=== PATIENT | male | born 1995 | race Two or more races ===

== ENCOUNTER → 2020-02-08 | Outpatient (CLI) | payer BC ==
[2020-02-08 13:19] LABS: Urine WBC None Seen /hpf (0 - 3)
[2020-02-08 13:36] LABS: Urine Bacteria NONE SEEN /hpf (None Seen); Urine Blood 3+ /uL (Negative); Urine Hyaline Cast FEW /lpf (0 - 2); Urine Specific Gravity 1.016 (1.001-1.035)
[2020-02-08 13:45] LABS: Basophils # (auto) 0 10 ^3/uL (0-0.2); Basophils % (auto) 0.6 % (0.0-2.0); Eosinophils # (auto) 0.1 10 ^3/uL (0-0.8); Eosinophils % (auto) 1.5 % (0.0-7.0); Hematocrit 48.4 % (41.0-53.0); Hemoglobin 16.8 g/dL (13.5-17.5); Lymphocytes # (auto) 2.9 10 ^3/uL (0.4-5.4); Lymphocytes % (auto) 35.3 % (10.0-50.0); Mean Corpuscular Hemoglobin 29.7 pg (28.0-32.0); Mean Corpuscular Hgb Conc. 34.6 g/dL (32.0-36.0); Mean Corpuscular Volume 85.9 fL (80.0-100.0); Monocytes # (auto) 0.7 10 ^3/uL (0-1.3); Monocytes % (auto) 8.4 % (0.0-12.0); Neutrophils # (auto) 4.5 10 ^3/uL (1.6-8.6); Neutrophils % (auto) 54.2 % (37.0-80.0); Nucleated Red Blood Cells % 0.1 %; Platelet Count (auto) 203 10^3/uL (140-450); Red Blood Cells 5.63 10^6/uL (4.5-5.90); White Blood Cell 8.3 10^3/uL (4.4-10.8)
[2020-02-08 14:43] LABS: Calcium 9.3 mg/dL (8.5-10.1); Potassium 3.9 mmol/L (3.5-5.1)
[2020-02-08 14:47] LABS: BUN/Creatinine Ratio 13.8; Total Protein 7.2 g/dL (6.4-8.2)
[2020-02-08 14:49] LABS: Cholesterol 215 mg/dL (< 200)
[2020-02-08 14:51] LABS: HDL Cholesterol 36 mg/dL (40-59); LDL Cholesterol 144 mg/dL (< 100); Triglycerides 234 mg/dL (< 150)
== END | disposition home or self-care (01) ==
LOC: LAB 13:01
PROVIDERS: ATTEND Internal Medicine
DX: Z00.00 Encounter for general adult medical examination without abnormal findings (principal)
CPT/HCPCS: 36415; 80053; 80061; 81001; 83036; 84443; 85025

== ENCOUNTER → 2020-02-29 | Outpatient (CLI) | payer BC | END | disposition home or self-care (01) | LOC: LAB 14:50 | PROVIDERS: ATTEND Nurse Practitioner Family | DX: Z20.828 Contact with and (suspected) exposure to other viral communicable diseases (principal) | CPT/HCPCS: 36415; 87426; C9803; U0003 ==

== ENCOUNTER → 2021-03-28 | Outpatient (CLI) | payer BC ==
[2021-03-28 10:29] LABS: Basophils # (auto) 0 10 ^3/uL (0-0.2); Basophils % (auto) 0.6 % (0.0-2.0); Eosinophils # (auto) 0.1 10 ^3/uL (0-0.8); Eosinophils % (auto) 1.4 % (0.0-7.0); Hematocrit 51.2 % (41.0-53.0); Hemoglobin 17.3 g/dL (13.5-17.5); Lymphocytes # (auto) 2.4 10 ^3/uL (0.4-5.4); Lymphocytes % (auto) 32.3 % (10.0-50.0); Mean Corpuscular Hemoglobin 29.2 pg (28.0-32.0); Mean Corpuscular Hgb Conc. 33.7 g/dL (32.0-36.0); Mean Corpuscular Volume 86.7 fL (80.0-100.0); Monocytes # (auto) 0.7 10 ^3/uL (0-1.3); Monocytes % (auto) 9.7 % (0.0-12.0); Neutrophils # (auto) 4.2 10 ^3/uL (1.6-8.6); Nucleated Red Blood Cells % 0.2 %; Red Blood Cells 5.91 10^6/uL (4.5-5.90); Red Cell Distribution Width 13.6 % (11.8-14.3); White Blood Cell 7.5 10^3/uL (4.4-10.8)
[2021-03-28 10:49] LABS: Urine Bacteria NONE SEEN /hpf (None Seen); Urine Blood 2+ /uL (Negative); Urine Specific Gravity 1.019 (1.001-1.035); Urine WBC 1 /hpf (0 - 3)
[2021-03-28 11:22] LABS: Potassium 4.8 mmol/L (3.5-5.1)
[2021-03-28 11:32] LABS: Albumin 4.2 g/dL (3.4-5.0); BUN/Creatinine Ratio 13.6; Calcium 9.5 mg/dL (8.5-10.1); Total Protein 7.8 g/dL (6.4-8.2)
== END | disposition home or self-care (01) ==
LOC: LAB 10:08
PROVIDERS: ATTEND Internal Medicine
DX: Z00.00 Encounter for general adult medical examination without abnormal findings (principal); R00.2 Palpitations; I10 Essential (primary) hypertension; E78.5 Hyperlipidemia, unspecified
CPT/HCPCS: 36415; 80053; 80061; 81001; 83036; 85025

== ENCOUNTER → 2021-04-04 | Outpatient (CLI) | payer BC | END | disposition home or self-care (01) | LOC: XYW 11:04 | PROVIDERS: ATTEND Internal Medicine | DX: I51.7 Cardiomegaly (principal) | CPT/HCPCS: 93306 ==

== ENCOUNTER → 2021-07-10 | Outpatient (CLI) | payer BC ==
[2021-07-10 12:28] LABS: Urine Bacteria NONE SEEN /hpf (None Seen); Urine Blood 2+ /uL (Negative); Urine Specific Gravity 1.007 (1.001-1.035); Urine WBC <1 /hpf (0 - 3)
[2021-07-10 12:54] LABS: Cholesterol 231 mg/dL (< 200); HDL Cholesterol 36 mg/dL (40-59); LDL Cholesterol 159 mg/dL (< 100); Triglycerides 179 mg/dL (< 150)
== END | disposition home or self-care (01) ==
LOC: LAB 09:26
PROVIDERS: ATTEND Internal Medicine
DX: E78.5 Hyperlipidemia, unspecified (principal); N18.2 Chronic kidney disease, stage 2 (mild)
CPT/HCPCS: 36415; 80061; 81001

== ENCOUNTER → 2022-07-10 | Day surgery (SDC) | payer BC ==
[2022-07-07 10:13] LABS: Urine WBC None Seen /hpf (0 - 3)
[2022-07-07 10:25] LABS: Basophils # (auto) 0 10 ^3/uL (0-0.2); Basophils % (auto) 0.6 % (0.0-2.0); Eosinophils # (auto) 0.2 10 ^3/uL (0-0.8); Eosinophils % (auto) 2.8 % (0.0-7.0); Hematocrit 47.1 % (41.0-53.0); Hemoglobin 16.1 g/dL (13.5-17.5); Lymphocytes # (auto) 2.6 10 ^3/uL (0.4-5.4); Lymphocytes % (auto) 35.1 % (10.0-50.0); Mean Corpuscular Hemoglobin 29.3 pg (28.0-32.0); Mean Corpuscular Hgb Conc. 34.2 g/dL (32.0-36.0); Mean Corpuscular Volume 85.5 fL (80.0-100.0); Monocytes # (auto) 0.8 10 ^3/uL (0-1.3); Monocytes % (auto) 10.4 % (0.0-12.0); Neutrophils # (auto) 3.8 10 ^3/uL (1.6-8.6); Neutrophils % (auto) 51.1 % (37.0-80.0); Nucleated Red Blood Cells % 0.2 %; Red Blood Cells 5.52 10^6/uL (4.5-5.90); Red Cell Distribution Width 13.5 % (11.8-14.3); White Blood Cell 7.4 10^3/uL (4.4-10.8)
[2022-07-07 10:31] LABS: Urine Bacteria NONE SEEN /hpf (None Seen); Urine Blood 1+ /uL (Negative); Urine Specific Gravity 1.006 (1.001-1.035)
[2022-07-07 11:07] LABS: Potassium 4.1 mmol/L (3.5-5.1)
[2022-07-07 11:16] LABS: Albumin 3.9 g/dL (3.4-5.0); BUN/Creatinine Ratio 11.8 (10.0-20.0); Bilirubin, Total 1.1 mg/dL (0.2-1.0); Total Protein 7.3 g/dL (6.4-8.2)
[2022-07-07 11:43] LABS: INR 0.96 (0.9-1.15); Partial Thromboplastin Time 27.8 sec (24.6-33.4)
[~2022-07-10] VITALS: Ht 172.7 cm; Wt 81.6 kg
[~2022-07-10] MED LIST: BACITRACIN TOP OINT 1 UD PKG TOP ONE; HYDROmorphone HCL 2 MG/ML VL/or syr IV PRN; LIDOCAINE W/ EPINEPHRINE 1% 20ML VIAL ONE; LOSA-69 PO; MIDAZOLAM HCL 2MG/2ML 2ml VIAL (1mg/ml) ONE; ONDANSETRON HCL 4 MG/2 ML VIAL IV PRN; PROPOFOL 10 MG/ML 20 ML IV ONE; ceFAZolin 1GM/50ML 100 ML IV ONE; fentaNYL CITRATE 100 MCG/2 ML VL ONE
[2022-07-10 12:50] VITALS: BP 110/48
== END | disposition home or self-care (01) ==
LOC: SUR 07:15
PROVIDERS: ATTEND Urology
DX: Z30.2 Encounter for sterilization (principal); I10 Essential (primary) hypertension; Z79.899 Other long term (current) drug therapy
CPT/HCPCS: 36415; 55250; 80053; 81001; 85025; 85610; 85730; 87086; J0690; J2250; J2704; J3010

== ENCOUNTER → 2022-07-30 | Outpatient (CLI) | payer BC ==
[~2022-07-30] MED LIST changes: -BACITRACIN TOP OINT 1 UD PKG TOP ONE; -HYDROmorphone HCL 2 MG/ML VL/or syr IV PRN; -LIDOCAINE W/ EPINEPHRINE 1% 20ML VIAL ONE; -LOSA-69 PO; +LOSA50TA46 PO; -MIDAZOLAM HCL 2MG/2ML 2ml VIAL (1mg/ml) ONE; -ONDANSETRON HCL 4 MG/2 ML VIAL IV PRN; -PROPOFOL 10 MG/ML 20 ML IV ONE; -ceFAZolin 1GM/50ML 100 ML IV ONE; -fentaNYL CITRATE 100 MCG/2 ML VL ONE
[2022-07-30 10:23] LABS: Albumin 4.1 g/dL (3.4-5.0)
[2022-07-30 10:38] LABS: Bilirubin, Direct 0.2 mg/dL (0-0.2); Bilirubin, Total 1.3 mg/dL (0.2-1.0); Total Protein 7.4 g/dL (6.4-8.2)
== END | disposition home or self-care (01) ==
LOC: LAB 09:37
PROVIDERS: ATTEND Internal Medicine
DX: E78.5 Hyperlipidemia, unspecified (principal)
CPT/HCPCS: 36415; 80076; 83036

== ENCOUNTER → 2022-09-02 | Outpatient (CLI) | payer BC ==
[2022-09-02 11:45] LABS: Albumin 3.9 g/dL (3.4-5.0); Bilirubin, Direct 0.2 mg/dL (0-0.2); Bilirubin, Total 1.4 mg/dL (0.2-1.0); Total Protein 7.4 g/dL (6.4-8.2)
== END | disposition home or self-care (01) ==
LOC: LAB 09:06
PROVIDERS: ATTEND Internal Medicine
DX: E78.5 Hyperlipidemia, unspecified (principal)
CPT/HCPCS: 36415; 80061; 80076

== ENCOUNTER → 2023-12-23 | Outpatient (CLI) | payer BC ==
[~2023-12-23] MED LIST changes: +LOSA-534 PO; -LOSA50TA46 PO
[2023-12-23 09:48] LABS: Basophils # (auto) 0 10 ^3/uL (0-0.2); Basophils % (auto) 0.7 % (0.0-2.0); Eosinophils # (auto) 0.2 10 ^3/uL (0-0.8); Eosinophils % (auto) 3.7 % (0.0-7.0); Hematocrit 51.6 % (41.0-53.0); Hemoglobin 17.3 g/dL (13.5-17.5); Lymphocytes # (auto) 2.3 10 ^3/uL (0.4-5.4); Lymphocytes % (auto) 34.6 % (10.0-50.0); Mean Corpuscular Hemoglobin 29.7 pg (28.0-32.0); Mean Corpuscular Hgb Conc. 33.5 g/dL (32.0-36.0); Mean Corpuscular Volume 88.8 fL (80.0-100.0); Monocytes # (auto) 0.7 10 ^3/uL (0-1.3); Monocytes % (auto) 10.6 % (0.0-12.0); Neutrophils # (auto) 3.3 10 ^3/uL (1.6-8.6); Neutrophils % (auto) 50.4 % (37.0-80.0); Platelet Count (auto) 187 10^3/uL (140-450); Red Blood Cells 5.81 10^6/uL (4.5-5.90); Red Cell Distribution Width 13.8 % (11.8-14.3); White Blood Cell 6.6 10^3/uL (4.4-10.8)
[2023-12-23 09:59] LABS: Urine Bacteria None Seen /hpf (None Seen); Urine Blood 2+ /uL (Negative); Urine Clarity Clear (Clear); Urine Color Colorless (Yellow); Urine Protein, UAD TRACE (Negative); Urine Specific Gravity 1.008 (1.001-1.035); Urine Urobilinogen Normal (Negative); Urine WBC None Seen /hpf (0 - 3); Urine pH 5.5 (5.0-9.0)
[2023-12-23 10:19] LABS: Alanine Aminotransferase 18 U/L (7-40); Albumin 4.5 g/dL (3.2-4.8); Alkaline Phosphatase 99 U/L (46-116); Anion Gap 5 (5-15); Aspartate Aminotransferase 17 U/L (13-40); BUN/Creatinine Ratio 12.3 (10.0-20.0); Blood Urea Nitrogen 15 mg/dL (9-23); Calcium 10.1 mg/dL (8.7-10.4); Carbon Dioxide 30 mmol/L (20-31); Chloride 106 mmol/L (98-107); Glucose 91 mg/dL (74-106); LDL Cholesterol 163 mg/dL (< 100); Potassium 4.5 mmol/L (3.5-5.1); Sodium 141 mmol/L (136-145); Triglycerides 123 mg/dL (< 150)
[2023-12-23 10:20] LABS: Bilirubin, Total 1.6 mg/dL (0.2-1.0); Cholesterol 217 mg/dL (< 200); HDL Cholesterol 43 mg/dL (40-59); Total Protein 7.3 g/dL (5.7-8.2)
== END | disposition home or self-care (01) ==
LOC: LAB 09:30
PROVIDERS: ATTEND Internal Medicine
DX: I10 Essential (primary) hypertension (principal); E78.5 Hyperlipidemia, unspecified
CPT/HCPCS: 36415; 80053; 80061; 81001; 83036; 84403; 84443; 85025

== ENCOUNTER → 2024-02-04 | Outpatient (CLI) | payer BC ==
[2024-02-05 08:06] LABS: Complement C3 122 mg/dL (82-167); Rheumatoid Arthritis Factor <10.0 IU/mL (<14.0); Thyroid Peroxidase (TPO) Ab 12 IU/mL (0-34)
[2024-02-05 12:06] LABS: Anti-Nuclear Antibody Direct Negative (Negative); Anti-dsDNA Antibody <1 IU/mL (0-9); Antiscleroderma-70 Antibody <0.2 AI (0.0-0.9); RNP Antibody <0.2 AI (0.0-0.9); Sjogren's Anti-SS-A Antibody <0.2 AI (0.0-0.9); Sjogren's Anti-SS-B Antibody <0.2 AI (0.0-0.9); Smith Antibody <0.2 AI (0.0-0.9)
== END | disposition home or self-care (01) ==
LOC: LAB 09:29
PROVIDERS: ATTEND Internal Medicine
DX: R31.29 Other microscopic hematuria (principal)
CPT/HCPCS: 86160; 86225; 86235; 86256; 86376; 86431

== ENCOUNTER 2024-03-23 07:50 | Day surgery (SDC) | payer BC ==
[2024-03-21 14:23] LABS: Urine Bacteria None Seen /hpf (None Seen)
[2024-03-21 14:25] LABS: Basophils # (auto) 0 10 ^3/uL (0-0.2); Basophils % (auto) 0.6 % (0.0-2.0); Eosinophils # (auto) 0.3 10 ^3/uL (0-0.8); Eosinophils % (auto) 3.6 % (0.0-7.0); Hematocrit 49.1 % (41.0-53.0); Hemoglobin 16.9 g/dL (13.5-17.5); Lymphocytes # (auto) 2.8 10 ^3/uL (0.4-5.4); Lymphocytes % (auto) 36.7 % (10.0-50.0); Mean Corpuscular Hemoglobin 29.9 pg (28.0-32.0); Mean Corpuscular Hgb Conc. 34.5 g/dL (32.0-36.0); Mean Corpuscular Volume 86.5 fL (80.0-100.0); Monocytes # (auto) 0.7 10 ^3/uL (0-1.3); Monocytes % (auto) 9.8 % (0.0-12.0); Neutrophils # (auto) 3.7 10 ^3/uL (1.6-8.6); Neutrophils % (auto) 49.3 % (37.0-80.0); Nucleated Red Blood Cells % 0.2 %; Platelet Count (auto) 196 10^3/uL (140-450); Red Blood Cells 5.67 10^6/uL (4.5-5.90); Red Cell Distribution Width 13.1 % (11.8-14.3); White Blood Cell 7.6 10^3/uL (4.4-10.8)
[2024-03-21 14:39] LABS: Partial Thromboplastin Time 28.5 SEC (24.5-34.5); Prothrombin Time 10.6 sec (9.3-11.8)
[2024-03-21 14:42] LABS: Urine Blood 1+ /uL (Negative); Urine Clarity Clear (Clear); Urine Protein, UAD Negative (Negative); Urine Specific Gravity 1.006 (1.001-1.035); Urine Squamous Epithelial Cell None Seen /hpf (<5); Urine Urobilinogen Normal (Negative); Urine WBC < 1 /HPF (0-3)
[2024-03-21 14:43] LABS: Urine Color Light-Yellow (Yellow)
[2024-03-21 14:50] LABS: Alanine Aminotransferase 16 U/L (7-40); Albumin 4.7 g/dL (3.2-4.8); Alkaline Phosphatase 108 U/L (46-116); Anion Gap 7 (5-15); Aspartate Aminotransferase 16 U/L (13-40); BUN/Creatinine Ratio 14.4 (10.0-20.0); Blood Urea Nitrogen 19 mg/dL (9-23); Calcium 10.2 mg/dL (8.7-10.4); Carbon Dioxide 31 mmol/L (20-31); Chloride 102 mmol/L (98-107); Potassium 3.9 mmol/L (3.5-5.1); Sodium 140 mmol/L (136-145)
[2024-03-21 14:51] LABS: Bilirubin, Total 1.8 mg/dL (0.2-1.0); Glucose 68 mg/dL (74-106); Total Protein 7.2 g/dL (5.7-8.2)
[~2024-03-23] VITALS: Ht 172.7 cm; Wt 81.6 kg
[~2024-03-23 07:50] MED LIST changes: +ACETAMINOPHEN IV 1000 MG/100ML (10MG/ML) IV ONE; +CELECOXIB 100 MG CAP PO ONE; +GABAPENTIN 300 MG CAP PO ONE
[2024-03-23] MEDS ORDERED: BUPIVACAINE 0.25% INJ 50ML VIAL ONE (08:01)
[2024-03-23] MEDS ORDERED: BUPIVACAINE HCL 50 ML ONE (08:01)
[2024-03-23] MEDS ORDERED: DexAMETHasone SOD PHOS 4 MG/1ML SDV INJ ONE (08:01)
[2024-03-23] MEDS ORDERED: ONDANSETRON HCL 4 MG/2 ML VIAL ONE (08:02)
[2024-03-23] MEDS ORDERED: EPINEPHrine HCL 1 MG/1 ML AMP ONE (08:02)
[2024-03-23] MEDS ORDERED: KETOROLAC TROMETH 30 MG/ML 1ML VIAL ONE (08:02)
[2024-03-23] MEDS ORDERED: DexAMETHasone SOD PHOS 10MG/1ML VIAL INJ ONE (08:02)
[2024-03-23] MEDS ORDERED: LIDOCAINE HCL 2% TOP JELLY 5ML TOP ONE (08:02)
[2024-03-23] MEDS ORDERED: LIDOCAINE 2% (LOCAL ANESTH.) PF 5ml SDV ONE (08:02)
[2024-03-23] MEDS ORDERED: GLYCOPYRROLATE 0.2 MG/ML 1ML VIAL ONE (08:03)
[2024-03-23] MEDS ORDERED: PROPOFOL 10 MG/ML 20 ML IV ONE (08:03)
[2024-03-23] MEDS ORDERED: KETAMINE 50mg/ML 1ml syringe ONE (09:03)
[2024-03-23] MEDS ORDERED: fentaNYL CITRATE 100 MCG/2 ML VL ONE (09:10)
[2024-03-23] MEDS: ceFAZolin 2 GM/D5W100ml 100 ML IV ONE (09:15)
[2024-03-23] MEDS ORDERED: ePHEDrine SULFATE 50 MG/ML AMP ONE (09:48)
[2024-03-23 10:15] VITALS: RESP 13; TEMP 97.8; O2SAT 97
--- NOTE | 2024-03-23 10:21 | DVHOP2 ---
Operative Report - 2 Report Details Date: 03/23/24 Preop Diagnosis: 1. Left lisfranc dislocation 2. Left second metatarsal fracture 3. Left third metatarsal fracture Postop Diagnosis: Left foot Lisfranc dislocation Surgeon: Evon Thompson MD Anesthesiologist: See anesthesia Anesthesia: General Implant: Arthrex staple 25 x 20 and 20 x 20 Consent: The patient was informed of the risks and benefits of the procedure. These include but are not limited to complications of anesthesia, postoperative infection, incomplete relief of symptoms, recurrence of symptoms, damage to blood vessels, nerves and tendons, deep venous thrombosis, pulmonary embolism and possible need for repeat surgery in the future. Complications: None Estimated Blood Loss: Minimal Fluids: See anesthesia Findings: Consistent with diagnosis Indications for Surgery: Left foot Lisfranc dislocation Name of Procedure Performed 1. Left second metatarsal ORIF (85144) 2. Left third metatarsal ORIF (92981) 3. Left second and third TMT arthrodesis (25766) Procedure Details Procedure Details: PRE-PROCEDURE INFORMATION: In the pre-op holding area, the extremity to be operated on was clearly marked and the patient verified correct laterality of the marking. The patient was transferred to the OR table and placed in a supine position. A timeout was performed in which identification of the correct patient, procedure, location, and materials was done. The left foot and leg were prepped and draped in normal sterile fashion. The foot and leg were exsangu inated and the thigh tourniquet was inflated to 250 mmHg. DESCRIPTION OF PROCEDURE: Attention was directed to the left second metatarsal cuneiform joint where an incision was made on the dorsal aspect of the foot just over the second MC joint. The incision was deepened through blunt and sharp dissection. Care was taken throughout dissection to avoid damage to neurovascular structures including the deep peroneal nerve and dorsalis pedis artery as well as the extensor tendons. This incision was carried to the level of the second metatarsal cuneiform joint where the joint capsule was incised for inspection of the joint. There was notable degenerative changes of the articular cartilage of the joint. The periosteum of the second metatarsal base and medial cuneiform were reflected and utilizing a joint retractor, the joint was distracted and any remaining cartilage was removed using sharp instrumentation. The cartilage was removed to the level of subchondral bone on both sides of the joint. Utilizing a Arthrex staple, the staple was placed over the fusion site and adequate compression of the second metatarsal cuneiform joint was obtained. Proper placement of hardware as well as compression of the joint was verified on intraoperative fluoroscopy. Attention was directed to the left 3rd metatarsal cuneiform joint where an incision was made on the dorsal aspect of the foot just over the second MC joint. The incision was deepened through blunt and sharp dissection. Care was taken throughout dissection to avoid damage to neurovascular structures including the deep peroneal nerve and dorsalis pedis artery as well as the extensor tendons. This incision was carried to the level of the 3rd metatarsal cuneiform joint where the joint capsule was incised for inspection of the joint. There was notable degenerative changes of the articular cartilage of the joint. The periosteum of the 3rd metatarsal base and medial cuneiform were reflected and utilizing a joint retractor, the joint was distracted and any remaining cartilage was removed using sharp instrumentation. The cartilage was removed to the level of subchondral bone on both sides of the joint. Utilizing a Arthrex staple, the staple was placed over the fusion site and adequate compression of the 3rd metatarsal cuneiform joint was obtained. Proper placement of hardware as well as compression of the joint was verified on intraoperative fluoroscopy. All surgical wounds were irrigated copiously with saline and closed in layers with the aforementioned suture material. A dry sterile dressing was placed on the surgical extremity. The patient was placed in a cam boot POSTOPERATIVE INFORMATION: The patient tolerated the above noted procedure and anesthesia well and was transferred to the PACU with vital signs stable, and vascular status intact with capillary refill intact to all digits. Postoperative instructions reviewed in detail with the patient with written instructions provided. Patient will return to clinic in approximately 10-14 days for first postoperative visit. Patient has the number of the clinic and was instructed to call prior to that time should any problems, questions, or concerns arise. Condition Good Disposition Home EVON THOMPSON DPM Mar 23, 2024 10:21
[2024-03-23] MEDS ORDERED: fentaNYL CITRATE 100 MCG/2 ML VL IV PRN (10:30)
[2024-03-23] MEDS ORDERED: NALOXONE HCL 0.4 MG/ML VIAL IV PRN (10:30)
[2024-03-23] MEDS ORDERED: ePHEDrine SULFATE 50 MG/ML AMP IV PRN (10:30)
[2024-03-23] MEDS ORDERED: FLUMAZENIL 0.1 MG/ML INJ 10ML MDV IV PRN (10:30)
[2024-03-23] MEDS ORDERED: ONDANSETRON HCL 4 MG/2 ML VIAL IV PRN (10:30)
[2024-03-23] MEDS ORDERED: hydrALAZINE HCL 20 MG/ML VL IV PRN (10:30)
[2024-03-23] MEDS: oxyCODONE HCL 5MG TAB PO PRN (10:36)
[2024-03-23] MEDS: HYDROmorphone HCL 2 MG/ML VL/or syr IV PRN (10:36)
[2024-03-23 11:00] VITALS: BP 123/81; PULSE 83; RESP 12; O2SAT 97
== END 2024-03-23 11:15 | disposition home or self-care (01) ==
LOC: SUR 07:50
PROVIDERS: ATTEND Podiatrist
DX: S92.322A Displaced fracture of second metatarsal bone, left foot, initial encounter for closed fracture (principal); S92.332A Displaced fracture of third metatarsal bone, left foot, initial encounter for closed fracture; S93.325A Dislocation of tarsometatarsal joint of left foot, initial encounter; I10 Essential (primary) hypertension; Z98.52 Vasectomy status; E66.3 Overweight; Z68.27 Body mass index [BMI] 27.0-27.9, adult; X58.XXXA Exposure to other specified factors, initial encounter; Y93.89 Activity, other specified; Y92.89 Other specified places as the place of occurrence of the external cause; Y99.8 Other external cause status
CPT/HCPCS: 28485; 28730; 36415; 64445; 76942; 80053; 81001; 85025; 85610; 85730; C1713; J0171; J1100; J1171; J1885; J2003; J2405; J2704; J3010; J3490; J0131

== ENCOUNTER 2024-12-06 07:53 | Outpatient (CLI) | payer BC ==
[~2024-12-06 07:53] MED LIST changes: -ACETAMINOPHEN IV 1000 MG/100ML (10MG/ML) IV ONE; -CELECOXIB 100 MG CAP PO ONE; -GABAPENTIN 300 MG CAP PO ONE
[2024-12-06 08:19] LABS: Urine Protein, UAD Negative (Negative)
[2024-12-06 08:34] LABS: Hematocrit 46.9 % (41.0-53.0); Hemoglobin 16.1 g/dL (13.5-17.5); Mean Corpuscular Hemoglobin 29.3 pg (28.0-32.0); Mean Corpuscular Volume 85.5 fL (80.0-100.0); Nucleated Red Blood Cells % 0.1 %
[2024-12-06 09:08] LABS: Alanine Aminotransferase 19 U/L (7-40); Albumin 4.3 g/dL (3.2-4.8); Alkaline Phosphatase 105 U/L (46-116); Anion Gap 10 (5-15); Calcium 9.3 mg/dL (8.7-10.4); Carbon Dioxide 27 mmol/L (20-31); Chloride 104 mmol/L (98-107); Glucose 96 mg/dL (74-106); Potassium 4.2 mmol/L (3.5-5.1); Sodium 141 mmol/L (136-145); Total Protein 7.0 g/dL (5.7-8.2); Triglycerides 124 mg/dL (< 150)
[2024-12-06 09:09] LABS: BUN/Creatinine Ratio 13.7 (10.0-20.0); Blood Urea Nitrogen 19 mg/dL (9-23)
[2024-12-06 09:10] LABS: Bilirubin, Total 1.2 mg/dL (0.2-1.0); Cholesterol 227 mg/dL (< 200); HDL Cholesterol 36 mg/dL (40-59)
[2024-12-06 09:24] LABS: Uric Acid 7.1 mg/dL (3.7-9.2)
== END 2024-12-06 17:00 | disposition home or self-care (01) ==
LOC: LAB 07:53
PROVIDERS: ATTEND Internal Medicine
DX: R79.89 Other specified abnormal findings of blood chemistry
CPT/HCPCS: 36415; 80053; 80061; 81001; 82306; 82607; 82746; 83036; 84443; 84550; 85025; 87086